=== PATIENT | female | born 1985 | race African-American/Black ===

== ENCOUNTER 2025-10-22 15:27 | Emergency (ER) | payer BC, OTHER ==
[~2025-10-22] VITALS: Ht 162.6 cm; Wt 88.6 kg
--- NOTE | 2025-10-22 16:36 | ED.PDOC ---
Musculoskeletal HPI Comments 40y F who presents to the ED for chief complaint of upper extremity pain. Pt states she jammed her L hand, 1st finger 1x week prior. Pt states since, she has been having L thumb pain and swelling with noted bruising. Pt states the pain started to radiate up her arm and she got concerned and came to the ED for further evaluation. Pt in the ED, otherwise denies any other symptoms. Chief Complaint: Upper Extremity Time Seen by MD: 16:33 Reviewed Notes: Medications, Allergies Allergies: Coded Allergies: NO KNOWN ALLERGIES (Unverified , 10/22/25) Home Meds Active Scripts Ibuprofen Micronized (Ibuprofen) 800 Mg Tab, 800 MG PO TIDPRN PRN for 10 Days, #30 TAB 0 Refills Prov:MICHAEL GUERRERO HOME HEALTH ASSISTANT 10/22/25 Cephalexin Monohydrate (Cephalexin) 500 Mg Tab, 1 TAB PO QID for 5 Days, #20 TAB 0 Refills Prov:MICHAEL GUERRERO HOME HEALTH ASSISTANT 10/22/25 Information Source: Patient Mode of Arrival: Ambulatory Brought in by: self Location: Left Extremity Location: Thumb Past Medical History PAST MEDICAL HISTORY: Denies Surgical History: Denies all surgeries [employer] 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 Family History Family History: Reviewed,noncontributory to illness Social History Smoker: Non-Smoker Alcohol: Denies ETOH Use Drugs: Denies Drug Use Lives In: Home Constitutional: denies: chills, diaphoresis, fatigue, fever, malaise, sweats, weakness, others EENTM: denies: blurred vision, double vision, ear bleeding, ear discharge, ear drainage, ear pain, ear ringing, eye pain, eye redness, hearing loss, mouth pain, mouth swelling, nasal discharge, nose bleeding, nose congestion, nose pain, photophobia, tearing, throat pain, throat swelling, voice changes, others Respiratory: denies: cough, hemoptysis, orthopnea, SOB at rest, shortness of b reath, SOB with excertion, stridor, wheezing, others Cardiovascular: denies: chest pain, dizzy spells, diaphoresis, Dyspnea on exertion, edema, irregular heart beat, left arm pain, lightheadedness, palpitations, PND, syncope, others Gastrointestinal: denies: abdomen distended, abdominal pain, blood streaked bowels, constipated, diarrhea, dysphagia, difficulty swallowing, hematemesis, melena, nausea, poor appetite, poor fluid intake, rectal bleeding, rectal pain, vomiting, others Genitourinary: denies: abnormal vagina bleeding, burning, dyspareunia, dysuria, flank pain, frequency, hematuria, incontinence, pain, , vagina discharge, urgency, others Neurological: denies: dizziness, fainting, headache, left sided numbness, left sided weakness, numbness, paresthesia, pre-existing deficit, right sided numbness, right sided weakness, seizure, speech problems, tingling, tremors, weakness, others Musculoskeletal: reports: joint pain (L hand 1st finger); denies: back pain, gout, joint swelling, muscle pain, muscle stiffness, neck pain, others Integumetry: denies: bruises, change in color, change in hair/nails, dryness, laceration, lesions, lumps, rash, wounds, others Allergic/Immunocompromised: denies: Difficulty Healing, Frequent Infections, Hives, Itching, others Hematologic/Lymphatic: denies: anemia, blood clots, easy bleeding, easy bruising, swollen glands, others Endocrine: denies: excessive hunger, excessive sweating, excessive thirst, excessive urination, flushing, intolerance to cold, intolerance to heat, unexplained weight gain, unexplained weight loss, others Psychiatric: denies: anxiety, bipolar disorder, depression, hopeless, panic disorder, schizophrenia, sleepless, suicidal, others All Other Systems: Reviewed and Negative Physical Exam General Appearance: No Apparent Distress, Normal HEENT: Normal ENT Inspection, Pharynx Normal, TMs Normal Neck: Full Range of Motion, Non-Tender, Normal, Normal Inspection Respiratory: Chest Non-Tender, Lungs Clear, No Accessory Muscle Use, No Respiratory Distress, Normal Breath Sounds Cardiovascular: No Edema, No JVD, No Murmur, No Gallop, Normal Peripheral Pulses, Regular Rate/Rhythm Breast Exam: Deferred Gastrointestinal: No Organomegaly, Non Tender, No Pulsatile Mass, Normal Bowel Sounds, Soft Genitalia: Deferred Pelvic: Deferred Rectal: Deferred Extremities: Swelling (R hand 1st finger) Musculoskeletal : Apperance: Normal Neurologic: Alert, 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 Was a procedure done?: No Differential Diagnosis EXT Differential Diagnosis: Fracture, Sprain, Contusion, Strain X-Ray, Labs, Meds, VS Vital Signs Date Time Temp Pulse Resp B/P (MAP) Pulse Ox O2 Delivery O2 Flow Rate FiO2 10/22/25 17:11 78 17 97 Room Air 10/22/25 17:11 98.7 78 16 132/87 (102) 97 98.7 10/22/25 15:30 97.3 95 14 115/76 100 97.3 [facility] [id number] [place] [id number] Ph: [phone] DIAGNOSTIC IMAGING Diagnostic Imaging Report : [id number] Signed PATIENT: NOLAN TEET: [id number] UNIT: [id number] : 1985 LOC: ER ROOM / BED: / AGE / SEX: 40 / F ADM STATUS: REG ER SERVICE [id number] ORDERING PHYSICIAN: MICHAEL GUERRERO NP PROCEDURE(s): RHAN - R HAND 3 VIEW XRAY REASON: Pain to thumb ORDER NUMBER(s): [id number], ACCESSION NUMBER(s): [id number] CLINICAL INDICATION: Pain to thumb TECHNIQUE: 3 radiographic views of the right hand were obtained. Comparison: None FINDINGS/IMPRESSION: Bony alignment is normal There are no fractures or dislocations. No radiopaque foreign bodies. ATED BY: PRATEEK MAYO Jr., DO DICTATED DATE/TIME: 10/22/251640 SIGNED BY: PRATEEK MAYO Jr., SIGNED DATE/TIME: 10/22/251640 CC: X-Ray, Labs, Meds, VS Comment Patient arrives alert and oriented, ABC's intact, afebrile, vital signs stable, saturating well in room air Diagnostic imaging ordered by me and results interpreted by radiology : R hand x-ray Based on show decision-making patient agreed to empiric treatment Patient is stable for discharge at this time. External notes reviewed. Test results and diagnostic imaging interpreted. All diagnostic findings, discharge care, education and instructions provided Follow-up with PCP in 2 to 3 days Patient verbalized understanding and agreed to treatment plan Vital signs stable, afebrile, no acute distress noted Patient ambulatory with strong steady gait Advised to return precautions for any new or worsening symptoms, return to ER immediately for re-evaluation Patient is aware that the purpose of this visit was for an acute medical emergency requiring emergent stabilization. Chronic conditions, including malignancies have not been ruled out. Patient is instructed to follow up with PCP as directed and discharge instructions for continued care and workup. If unable to arrange follow-up, patient is to return to the emergency department for reassessment. Patient (parent or legal guardian if applicable) was given verbal and written discharge instructions and acknowledges understanding. Additional MDM Review of External, Non-ED records: External records reviewed. Discussion with independent historian (EMS, family) history obtained from the patient/parents (if applicable) at bedside Chronic conditions affecting care: None Social determinants of health affecting care: None Consideration of admission (observation or admission): I considered escalation of care to admission for this patient, however given the reassuring workup, the patient is safe for outpatient management. Discussion with the Radiology: No Tests considered but not performed: Prescription medication considered but not given: 12 lead EKG interpretation: Time of 1ST Reevaluation: 17:00 Reevaluation 1ST: Unchanged Patient Education/Counseling: Diagnosis, Treatment Family Education/Counseling: Diagnosis, Treatment Departure 1 Departure Time of Disposition: 16:59 Impression: Primary Impression: Thumb pain Qualified Codes: M79.645 - Pain in left finger(s) Additional Impression: Thumb swelling Disposition: 01 HOME / SELF CARE / HOMELESS Condition: Stable Additional Instructions: Discharge Note: Continue on your medications. Do not drive when taking narcotics. Drink plenty of fluids. Follow up with your primary Dr. Take your prescriptions as ordered. If your condition becomes worse call and follow up with your primary Dr. for instructions or return to the ER if needed. Keep wound clean and dry. Have a wound check in 2 days. Thank you for visiting [facility]. e-Prescriptions Ibuprofen Micronized (Ibuprofen) 800 Mg Tab 800 MG PO TIDPRN PRN for 10 Days, #30 TAB 0 Refills Prov: MICHAEL GUERRERO HOME HEALTH ASSISTANT 10/22/25 Cephalexin Monohydrate (Cephalexin) 500 Mg Tab 1 TAB PO QID for 5 Days, #20 TAB 0 Refills Prov: MICHAEL GUERRERO NP 10/22/25 Critical Care Note Critical Care Time?: No Stability Stability form required: No Heart Score Heart Score: Heart Score Response (Comments) Value History N/A 0 EKG N/A 0 Age N/A 0 Risk Factors N/A 0 Troponin N/A 0 Total 0 I personally scribed for MICHAEL GUERRERO NP (EDD) on 10/22/25 at 16:36. Electronically submitted by Cara Cheek ([email or web address]). I personally scribed for MICHAEL GUERRERO NP (EDD) on 10/22/25 at 16:37. Elec tronically submitted by Cara Cheek (ELYSSA). I personally scribed for MICHAEL GUERRERO NP (EDD) on 10/22/25 at 16:58. Electronically submitted by Cara Cheek (ELYSSA). MICHAEL GUERRERO NP Oct 22, 2025 16:36
--- NOTE | 2025-10-22 16:44 | DVH ---
CLINICAL INDICATION: Pain to thumb TECHNIQUE: 3 radiographic views of the right hand were obtained. Comparison: None FINDINGS/IMPRESSION: Bony alignment is normal There are no fractures or dislocations. No radiopaque foreign bodies.
[2025-10-22] MEDS ORDERED: CEPH500T PO (17:02)
[2025-10-22] MEDS ORDERED: IBUP-1455 PO (17:02)
[2025-10-22 17:11] VITALS: BP 132/87; PULSE 78; RESP 17; TEMP 98.7; O2SAT 97
== END 2025-10-22 17:14 | disposition home or self-care (01) ==
LOC: ER 15:27
DX: M79.644 Pain in right finger(s) (principal); M79.89 Other specified soft tissue disorders
CPT/HCPCS: 73130